=== PATIENT | female | born 1985 | race Caucasian/White ===

== ENCOUNTER 2017-01-07 04:03 | Emergency (ER) | payer OTHER ==
[~2017-01-07] VITALS: Ht 157.5 cm; Wt 58.0 kg
[2017-01-07 04:08] VITALS: BP 110/71; TEMP 36.3; O2SAT 100; Ht 157.5 cm; Wt 58.0 kg
[2017-01-07] MEDS ORDERED: SODIUM CHLORIDE 0.9% 1000ML 1,000 ML IV STA (04:15)
[2017-01-07] MEDS ORDERED: DiphenhydrAMINE HCL 50 MG/ML VIAL IV STA (04:15)
[2017-01-07] MEDS ORDERED: METOCLOPRAMIDE HCL INJ 5 MG/ML 2 ML VIAL IV STA (04:15)
[2017-01-07] MEDS ORDERED: SODIUM CHLORIDE 0.9% 1000ML 2,000 ML IV STA (04:15)
[2017-01-07] MEDS ORDERED: METOCLOPRAMIDE HCL INJ 5 MG/ML 2 ML VIAL ONE (04:16)
[2017-01-07] MEDS ORDERED: DiphenhydrAMINE HCL 50 MG/ML VIAL ONE (04:16)
[2017-01-07 04:37] LABS: BASO % 0.1 %; BASO ABS # 0.01 K/uL (0-0.2); COMPLETE YES; EOS % 0.3 %; HEMATOCRIT 47.9 % (37-47); IG% 0.4 %; LYMPH % 3.6 %; LYMPH ABS # 0.63 K/uL (1.2-3.4); MEAN CELL VOLUME 87.9 fL (80-100); MEAN CORPUSCULAR HEMOGLOBIN 29.5 pg (25-34); MEAN CORPUSCULAR HGB CONC 33.6 g/dl (32-36); MONO % 3.5 %; NEUT % 92.1 %; PLATELET COUNT 294 K/uL (130-400); RED BLOOD COUNT 5.45 M/uL (4.2-5.4)
[2017-01-07 04:47] VITALS: PULSE 85
[2017-01-07 04:53] LABS: BUN/CREATININE RATIO 17.4 (10-20); CALCIUM 11.1 mg/dl (8.5-10.1); CREATININE 1.3 mg/dl (0.60-1.20); MAGNESIUM 1.9 mg/dl (1.8-2.4); POTASSIUM 4.2 mmol/L (3.5-5.1)
[2017-01-07] MEDS ORDERED: KETOROLAC TROMETHAMINE 30 MG/ML VIAL IV STA (05:00)
[2017-01-07] MEDS ORDERED: RANITIDINE HCL 50 MG/100 ML D5W IV STA (05:00)
[2017-01-07 05:01] LABS: PREG INTERNAL NEGATIVE QC NEG CLEAR BACKGROUND; PREG INTERNAL POSITIVE QC POS CONTROL LINE
[2017-01-07] MEDS ORDERED: ONDANSETRON HOME PACK 4MG OD TAB PO ONE (05:15)
[2017-01-07] MEDS ORDERED: GABA-113 PO (06:15)
[2017-01-07] MEDS ORDERED: SERT-234 PO (06:15)
--- NOTE | 2017-01-07 06:15 | EMERGENCY ROOM VISIT NOTE ---
History First contact with patient: 04:14 Chief Complaint: VOMITING Stated Complaint: VOMITING,DIARRHEA,NO FEELING IN ARMS AND LEGS History of Present Illness The patient is a 31 year old female who presents to the Emergency Room with complaints of nausea, vomiting, diarrhea, tingling in extremities the past several hours. Patient was at a [employer] and thinks she might ate something bad. No one else at the [employer] was sick. Patient complains of numerous episodes of vomiting and diarrhea that is nonbloody nonbilious nonblack and tarry in nature. Patient denies chest pain, dyspnea, back pain, urinary symptoms, localized abdominal pain, fever, chills. Review of Systems See HPI for pertinent positives & negatives. A total of 10 systems reviewed and were otherwise negative. Past Medical/Surgical History Anxiety, chronic pain Social History Smoking Status: Never Smoker Smokeless Tobacco Use: No Drug Use: none Marital Status: in relationship Housing Status: lives with family Physical Exam Vital Signs Date Time Temp Pulse Resp B/P (MAP) Pulse Ox O2 Delivery O2 Flow Rate FiO2 01/07/17 04:47 85 01/07/17 04:08 36.3 110 18 110/71 100 Room Air Physical Exam VITALS: Vitals are noted on the nurse's note and reviewed by myself. Vital signs stable. GENERAL: Anxious appearing female actively vomiting, nondiaphoretic, well- developed well-nourished. SKIN: The skin was without rashes, erythema, edema, or bruising. There is no tenting of the skin. Capillary reflex less than 2 seconds. HEAD: Normocephalic atraumatic. EARS: External auditory canals clear, tympanic membranes pearly esparza without erythema or effusion bilaterally. EYES: Pupils equal round and reactive to light and accommodation. Conjunctivae without injection, sclerae without icterus. Extraocular movements intact. NOSE: Patent, turbinates without inflammation or discharge. MOUTH: Mucous membranes mildly dry. Pharynx without erythema or exudate. Uvula midline. Airway patent. Tongue does not deviate. NECK: Supple without nuchal rigidity. No lymphadenopathy. No thyromegaly. Cervical spine is nontender. No JVD. HEART: Regular rate and rhythm without murmurs gallops or rubs. LUNGS: Clear to auscultation bilaterally without wheezes, rales or rhonchi. No dullness to percussion. No retractions or accessory muscle use. ABDOMEN: Positive bowel sounds x 4. Normal tympanic percussion. Soft, nontender, without masses or organomegaly. Quan sign negative. No guarding or rebound tenderness. MUSCULOSKELETAL: No muscle atrophy, erythema, or edema noted. NEURO: Patient was alert and oriented to person place and time. Normal sensation to light and sharp touch. No focal neurological deficits. Medical Decision & Procedures Laboratory Results 01/07/17 04:25 Red Blood Count 5.45, Mean Corpuscular Volume 87.9, Mean Corpuscular Hemoglobin 29.5, Mean Corpuscular Hemoglobin Concent 33.6, Mean Platelet Volume 10.0, Neutrophils (%) (Auto) 92.1, Lymphocytes (%) (Auto) 3.6, Monocytes (%) (Auto) 3.5, Eosinophils (%) (Auto) 0.3, Basophils (%) (Auto) 0.1, Neutrophils # (Auto) 15.93, Lymphocytes # (Auto) 0.63, Monocytes # (Auto) 0.60, Eosinophils # (Auto) 0.06, Basophils # (Auto) 0.01 01/07/17 04:25 Test 01/07/17 04:25 White Blood Count 17.30 K/uL (4.8-10.8) Red Blood Count 5.45 M/uL (4.2-5.4) Hemoglobin 16.1 g/dL (12.0-16.0) Hematocrit 47.9 % (37-47) Mean Corpuscular Volume 87.9 fL (80-100) Mean Corpuscular Hemoglobin 29.5 pg (25-34) Mean Corpuscular Hemoglobin Concent 33.6 g/dl (32-36) Platelet Count 294 K/uL (130-400) Mean Platelet Volume 10.0 fL (7.4-10.4) Neutrophils (%) (Auto) 92.1 % Lymphocytes (%) (Auto) 3.6 % Monocytes (%) (Auto) 3.5 % Eosinophils (%) (Auto) 0.3 % Basophils (%) (Auto) 0.1 % Neutrophils # (Auto) 15.93 K/uL (1.4-6.5) Lymphocytes # (Auto) 0.63 K/uL (1.2-3.4) Monocytes # (Auto) 0.60 K/uL (0.11-0.59) Eosinophils # (Auto) 0.06 K/uL (0-0.5) Basophils # (Auto) 0.01 K/uL (0-0.2) RDW Standard Deviation 45.6 fL (36.4-46.3) RDW Coefficient of Variation 14.1 % (11.5-14.5) Immature Granulocyte % (Auto) 0.4 % Immature Granulocyte # (Auto) 0.07 K/uL (0.00-0.02) Anion Gap 11.0 mmol/L (3-11) Est Creatinine Clear Calc Drug Dose 48.7 ml/min Estimated GFR () 62.4 Estimated GFR (Non- 53.9 BUN/Creatinine Ratio 17.4 (10-20) Calcium Level 11.1 mg/dl (8.5-10.1) Magnesium Level 1.9 mg/dl (1.8-2.4) Human Chorionic Gonadotropin, Qual NEG (NEG) Medications Administered Medications (Trade) Dose Ordered Sig/Heena Route Start Time Stop Time Status Last Admin Dose Admin Metoclopramide HCl (Reglan Inj) 10 mg NOW STAT IV 01/07/17 04:15 01/07/17 04:17 DC 01/07/17 04:32 10 MG Diphenhydramine HCl (Benadryl Inj) 25 mg NOW STAT IV 01/07/17 04:15 01/07/17 04:17 DC 01/07/17 04:33 25 MG Sodium Chloride 2,000 ml @ 999 mls/hr Q2H1M STAT IV 01/07/17 04:15 01/07/17 06:15 01/07/17 04:33 999 MLS/HR Sodium Chloride 1,000 ml @ 125 mls/hr Q8H STAT IV 01/07/17 04:15 01/07/17 12:14 01/07/17 04:33 125 MLS/HR Ondansetron HCl (ZOFRAN ODT 4MG Home Pack) 1 homepack UD ONCE PO 01/07/17 05:15 01/07/17 05:16 DC 01/07/17 05:35 1 HOMEPACK ED Course Prior records/ancillary studies reviewed. Triage Nursing notes reviewed. Additional history obtained from the family. The patient's history was concerning for nausea, vomiting, diarrhea, and abdominal pain. Differential diagnosis: Etiologies such as gastroenteritis, food borne illness, infections, appendicitis , diverticulitis, inflammatory bowel disease, obstruction, GI bleed, biliary pathology, as well as others were entertained. Physical examination findings: As above. Abdominal examination revealed no tenderness. Vital signs reviewed and revealed tachycardic. ER treatment provided: IV hydration 2 L NSS. Reglan, Benadryl On reassessment the patient felt better. Patient was tolerating p.o. intake. Diagnostics interpretation by me: EKG for hypercalcemia: Normal sinus, normal intervals, no acute ST-T wave changes, rate of 91. Impression normal sinus rhythm interpreted by myself The labs revealed leukocytosis most likely marginalization from vomiting. Mildly elevated H&H most likely from dehydration Creatinine 1.3. Hypercalcemia. This appears to be consistent with vomiting and diarrhea most likely viral in etiology. Patient was advised to follow-up this week with her family care doctor for further workup for her lab abnormalities. This most likely is from dehydration. She was advised to repeat her calcium level. Patient felt much better after being medicated as above. She is tolerating fluids. She is advised to clear liquid diet today and then progress as tolerated to bland diet tomorrow. She is advised to follow-up family care in a few days or here in the ER sooner for fevers, abdominal pain, vomiting, worsening signs or symptoms or as needed. Patient did not have acute abdomen on exam. She was well- appearing. By the evaluation outlined above emergent etiologies such as appendicitis, diverticulitis, obstruction, cardiac sources, mesenteric ischemia , aortic pathology, inflammatory bowel disease, renal colic, PUD, biliary pathology, UTI, as well as others were deemed relatively unlikely. The pt informed about the findings as listed above. All questions were answered and pleased with the treatment. Return instructions were outlined and the patient was discharged in stable condition. Outpatient prescription management: [email or web address] Referral: The patient was referred to their primary care physician for follow-up in 2 to 3 days for a recheck of the current condition. Medical Decision As above Medication Reconcilliation Current Medication List: was personally reviewed by me Blood Pressure Screening Patient's blood pressure: Normal blood pressure Impression Primary Impression: Nausea, vomiting, and diarrhea Departure Information Dispostion Home / Self-Care Condition GOOD Referrals No Doctor, Assigned (PCP) Patient Instructions My [facility] Additional Instructions DO NOT drive, drink alcohol, operate machinery, or perform dangerous activities today. You were given medications in the ER that can affect your ability to safely function or operate a vehicle. Have your calcium rechecked with your family care doctor next week when you follow-up. It was high today. Zofran(odansetron) tablets 4mg: Take one and allow it to dissolve in your mouth every four to six hours as needed for nausea or vomiting. Acetaminophen(Tylenol) may be used for fever or pain. Use 1000mg every six hours as needed. Avoid using more than 3000mg in a 24 hour period. Rest and drink plenty of fluids as tolerated. Slow sips of water or sports drinks are recommended instead of large amounts all at once. Continue current medications. Once your stomach is settled start with a clear liquid diet (jello, soup broth, etc.) and then advance as tolerated. You should avoid full, heavy meals for about 24 hrs from the time your symptoms resolved. Return to the ER for persistent vomiting, fevers, abdominal pain, chest pains, difficulty breathing, black or bloody stools, worsening of your condition, or as needed. Follow up with your primary physician in 2-3 days for a recheck of your current condition.
[2017-01-07] MEDS ORDERED: MELO7.5T5 PO (06:16)
[2017-01-07] MEDS ORDERED: PRENTAB26 PO (06:16)
[2017-01-07] MEDS ORDERED: HYDR-5688 PO (06:17)
[2017-01-07] MEDS ORDERED: CLON1TAB3 PO (06:17)
== END 2017-01-07 06:35 | disposition home or self-care (01) ==
LOC: C.EDB 04:05
DX: R11.2 Nausea with vomiting, unspecified (principal); R19.7 Diarrhea, unspecified; E86.0 Dehydration